=== PATIENT | male | born 2000 | race Caucasian/White ===

== ENCOUNTER 2021-02-20 11:05 | Emergency (ER) | payer OTHER, SELFPAY ==
[2021-02-20] VITALS (30 sets, daily range): BP systolic 109–146; BP diastolic 72–92; PULSE 86–140; RESP 12–31; TEMP 36.6; O2SAT 95–100
--- NOTE | ~2021-02-20 | XR_ITS ---
EXAMINATION: XR chest 1V portable DATE: 02/20/2021 11:32 INDICATION: Cough and shortness of breath. TECHNIQUE: A single frontal view of the chest was obtained. COMPARISON: None. FINDINGS: There are patchy ill-defined airspace opacities in the mid and lower lung zones. No pleural effusion or pneumothorax. The heart size is normal. IMPRESSION: 1. Patchy ill-defined airspace opacities in the mid and lower lung zone suspicious for atypical pneum onia such as COVID-19 pneumonia. Reviewed, dictated and finalized at location A. IMPRESSION: 1. Patchy ill-defined airspace opacities in the mid and lower lung zone suspici ous for atypical pneumonia such as COVID-19 pneumonia.
--- NOTE | 2021-02-20 11:21 | ECG_ITS ---
Measurements Intervals [place] Rate: 114 P: 71 UT: 137 QRS: 74 QRSD: 98 T: 37 QT: 304 QTc: 420 Interpretive Statements SINUS TACHYCARDIA BASELINE ARTIFACT- I, II, III, AVR, AVL, AVF, V1-V6 ABNORMAL ECG Electronically Signed On 02-20-2021 11:55:26 CDT by Fuentes Morel D.O.
--- NOTE | 2021-02-20 11:35 | ED.WEAKNESS ---
HPI - Weakness General Chief complaint: Weakness Stated complaint: Shortness of breath, two weeks Time Seen by Provider: 02/20/21 11:35 Source: patient Mode of arrival: ambulatory Limitations: no limitations History of Present Illness HPI Narrative: Patient is a 20-year-old male who presents to emergency department for evaluation of generalized weakness, cough, congestion over the past 10 days. Patient states he has had fever, chills, night sweats. He reports anorexia with decreased oral intake secondary to loss of appetite. He reports diarrhea last week that is since resolved. He denies any acute pain at this point. No chest pain or abdominal pain. He does report some shortness of breath with exertional activities. He denies lower leg swelling or calf pain. He is not vaccinated for Covid. He has not had any Covid test at this point. He does smoke electronic cigarettes and has occasional marijuana use. He denies difficulty with ambulation or focal weakness or numbness. He was able to drive himself from the hospital today. He has not taken any medication for his myalgias. Related Data Allergies Allergy/AdvReac Type Severity Reaction Status Date / Time No Known Allergies Allergy Unverified 12/28/14 13:54 Review of Systems Review of Systems: CONSTITUTIONAL: Reports fever, chills or night sweats EYES: Denies visual changes, redness, or discharge. ENT: Reports rhinorrhea and congestion, denies sore throat CARDIOVASCULAR: Denies chest pain, palpitations, or edema. RESPIRATORY: Reports dry cough and shortness of breath with exertion GASTROINTESTINAL: Denies abdominal pain, nausea, vomiting, or diarrhea. GENITOURINARY: Denies dysuria or hematuria. SKIN: Denies rash or itching. MUSCULOSKELETAL: Denies back pain, joint pain, reports myalgias NEUROLOGIC: Denies headache, numbness, or weakness. [facility] Social History Social History (Updated 02/20/21 @ 12:00 by Pallavi Viveros MD) Smoking status: Current every day smoker Tobacco type: e-cigarettes/vaping Alcohol intake: current Substance use: current Substance use type: marijuana Gender identity (if verbalized by the patient): Male Exam Narrative: GENERAL: Awake, alert, conversant HEAD: Normocephalic, atraumatic. EYES: PERRLA and EOMI. ENT: Nares clear, no rhinorrhea or epistaxis. Mucous membranes moist. NECK: Supple. CHEST: No respiratory distress, breathing even and non labored HEART: Tachycardic rate, sinus rhythm ABDOMEN:Non distended, non tender EXTREMITIES: Normal range of motion. No edema. SKIN: Warm, dry, no rash. NEURO:No focal deficits. Alert and oriented x3 Course Vital Signs Vital signs: Vital Signs Temperature 36.6 C 02/20/21 11:10 Pulse Rate 140 H 02/20/21 11:10 Respiratory Rate 20 02/20/21 11:10 Blood Pressure 142/86 H 02/20/21 11:10 Pulse Oximetry 100 02/20/21 11:10 Temperature 36.6 C 02/20/21 11:10 Pulse Rate 88 02/20/21 14:37 Respiratory Rate 20 02/20/21 14:37 Blood Pressure 117/77 02/20/21 14:37 Pulse Oximetry 98 02/20/21 14:37 MDM - Weakness MDM Narrative Medical decision making narrative: Patient is a 20-year-old male who presented for evaluation of symptoms consistent with an upper respiratory infection. Patient was tachycardic at the time of assessment. IV access obtained and labs were drawn. Blood cultures were drawn. Patient has mild leukocytosis, no lactic acidosis. No anemia. No significant electrolyte derangement. No elevation in troponin. Thyroid is normal. Patient with chest x-ray concerning for pneumonia. Covid swab here is negative. No urinary tract infection. Patient with mild elevation in AST. May be secondary to infectious type process. Based on symptoms, patient may have had Covid/viral URI two weeks ago when symptoms began and now has a superimposed bacterial pneumonia. Patient does vape and I did explain the importance of discontinuing e-cigarette usage. Patient is
[2021-02-20 11:47] LABS: Basophils Percent Auto 0.4 % (0.2-1.2); Eosinophils Absolute Auto 0.2 K/mm3 (0-0.3); Eosinophils Percent Auto 2.1 % (0-4.4); Hematocrit 42.3 % (42.0-52.0); Immature Granulocyte Percent A 1.8 % (0-0.5); Lymphocytes Absolute Auto 1.09 K/mm3 (0.9-3.2); Lymphocytes Percent Auto 9.9 % (18.3-44.2); Mean Corpuscular HGB Conc 33.1 g/dl (32-36); Mean Corpuscular Volume 87.8 fl (80-100); Mean Platelet Volume 8.9 fl (7.4-10.4); Monocytes Absolute Auto 0.3 K/mm3 (0.1-0.6); Monocytes Percent Auto 2.4 % (2.6-8.5); Neutrophils Absolute Auto 9.2 K/mm3 (1.3-6.7); Neutrophils Percent Auto 83.4 % (45.5-73.1); Platelet Count Result 408 k/mm3 (150-375); Red Blood Count 4.82 M/mm3 (4.6-6.20); Red Cell Distribution Width 12.4 % (11.5-14.5); White Blood Count 11.1 K/mm3 (4.5-10.0)
[2021-02-20 12:04] LABS: Alanine Aminotransferase 70 U/L (4-50); Albumin Level 4.1 g/dL (3.7-5.6); Alkaline Phosphatase 91 U/L (58-237); Anion Gap 9 mmol/L (8-16); Aspartate Amino Transferase 55 U/L (17-59); Bilirubin,Total 0.6 mg/dL (0.2-1.3); Blood Urea Nitrogen 10 mg/dL (8-21); Calcium 9.1 mg/dL (8.9-10.7); Carbon Dioxide 30 mmol/L (22-30); Chloride 97 mmol/L (98-107); Estimated CRCL calculation 96 ml/min; Estimated Glomerular Filt Rate > 60; Glucose 138 mg/dL (65-110); Potassium 3.8 mmol/L (3.4-5.0); Sodium 136 mmol/L (134-143)
[2021-02-20] MEDS: ACETAMINOPHEN 500 MG TABLET 1000 MG PO (12:05)
[2021-02-20] MEDS: ONDANSETRON INJ 4 MG/2 ML VIAL IV PUSH (12:06)
[2021-02-20 12:31] LABS: Add Urine Microscopic? NO; Appearance Urine Clear (Clear); Bilirubin Urine Negative (Negative); Blood Urine Negative (Negative); Color Urine Yellow (Yellow); Glucose Urine UA Negative (Negative); Ketones Urine Negative (Negative); Leukocyte Esterase Ur Negative LEU/UL (Negative); Nitrate Urine Negative (Negative); Protein Urine Negative (Negative); Specific Grav Ur 1.024 (1.001-1.035); Urobilinogen Urine Negative mg/dL (<2.0)
[2021-02-20 12:40] LABS: EDCOVIDSCREEN Negative (Negative)
[2021-02-20 12:48] LABS: Troponin I < 0.012 ng/mL (0.000-0.034)
[2021-02-20 13:08] LABS: INR 1.1; Prothrombin Time 14.3 Seconds (11.1-14.7)
[2021-02-20 13:09] LABS: Partial Thromboplastin Time 32.5 SECONDS (22.3-36.8)
[2021-02-20 13:28] LABS: Lactic Acid Reflex 1.8 mmol/L (0.7-2.1)
[2021-02-20 13:37] LABS: NT Pro B Type Natriuretic Pept 37 pg/mL (5-100)
[2021-02-20 13:49] LABS: CRP 15.5 mg/dL (<1.0)
--- NOTE | 2021-02-20 13:57 | PC.NURSE ---
Pt. ambulated with continuous pulse-ox. Pt. remained above 96% on room air. Pt. was not short of breath while ambulating. ERP notified.
== END 2021-02-20 14:57 | disposition home or self-care (01) ==
PROVIDERS: Emergency Medicine; Emergency Provider Emergency Medicine; PCP Pediatrics
DX: J18.9 Pneumonia, unspecified organism (principal); E86.0 Dehydration; Z20.822 Contact with and (suspected) exposure to COVID-19; F17.290 Nicotine dependence, other tobacco product, uncomplicated; R00.0 Tachycardia, unspecified
CPT/HCPCS: 36415; 71045; 80053; 81003; 83605; 83880; 84443; 84484; 85025; 85610; 85730; 86140; 87040; 87426; 87804; 93005; 96365; 96368; 96375; 99284; A9270; C9803; J0456; J0696; J2405; J7030